=== PATIENT | female | born 1975 | race Two or more races ===

== ENCOUNTER 2019-02-08 19:18 | Emergency (ER) | payer BC, OTHER ==
[~2019-02-08] VITALS: Ht 175.3 cm; Wt 90.7 kg
[2019-02-08] MEDS ORDERED: HYDROcodone-ACET 10/325MG TAB PO ONE (22:15)
[2019-02-08 22:30] VITALS: BP 135/79
== END 2019-02-08 22:31 | disposition home or self-care (01) ==
LOC: ER 19:18 → EDBD 19:18 → ER 22:31
DX: S13.4XXA Sprain of ligaments of cervical spine, initial encounter (principal); S33.5XXA Sprain of ligaments of lumbar spine, initial encounter; R51 Headache; Z88.0 Allergy status to penicillin; V43.62XA Car passenger injured in collision with other type car in traffic accident, initial encounter; Y93.89 Activity, other specified; Y92.410 Unspecified street and highway as the place of occurrence of the external cause; Y99.8 Other external cause status
CPT/HCPCS: 70450; 72125; 73030